=== PATIENT | female | born 1950 | race Caucasian/White ===

== ENCOUNTER 2017-08-24 08:21 | Outpatient (CLI) | payer OTHER | END 2017-08-24 08:33 | disposition home or self-care (01) | LOC: SONOGRAMA 08:21 → MAMO-SONO 09:15 | DX: E04.2 Nontoxic multinodular goiter (principal) ==

== ENCOUNTER → 2017-12-29 | Outpatient (CLI) | payer OTHER | END | disposition home or self-care (01) | LOC: LAB 08:13 | DX: D68.62 Lupus anticoagulant syndrome (principal); E72.11 Homocystinuria; E72.12 Methylenetetrahydrofolate reductase deficiency; D68.59 Other primary thrombophilia; D68.8 Other specified coagulation defects ==

== ENCOUNTER → 2018-04-26 10:02 | Outpatient (CLI) | payer OTHER | END | disposition home or self-care (01) | LOC: LAB 10:02 | DX: E11.65 Type 2 diabetes mellitus with hyperglycemia (principal) ==

== ENCOUNTER → 2019-02-07 | Outpatient (CLI) | payer OTHER | END | disposition home or self-care (01) | LOC: RAD 08:32 | DX: J45.998 Other asthma (principal) ==

== ENCOUNTER 2019-05-02 08:06 | Outpatient (CLI) | payer OTHER | END 2019-05-02 14:50 | disposition home or self-care (01) | LOC: MAMO-SONO 08:06 | DX: Z12.31 Encounter for screening mammogram for malignant neoplasm of breast (principal); Z12.39 Encounter for other screening for malignant neoplasm of breast; Z87.898 Personal history of other specified conditions ==

== ENCOUNTER 2019-05-09 11:39 | Outpatient (CLI) | payer OTHER | END 2019-05-09 12:30 | disposition home or self-care (01) | LOC: NUCLEAR 11:39 | DX: M81.0 Age-related osteoporosis without current pathological fracture (principal) ==

== ENCOUNTER 2020-11-29 07:59 | Outpatient (CLI) | payer OTHER | END 2020-11-29 08:12 | disposition home or self-care (01) | LOC: RAD 07:59 → MAMO-SONO 08:30 | PROVIDERS: ATTEND Specialist | DX: K75.81 Nonalcoholic steatohepatitis (NASH) (principal); J45.998 Other asthma; M10.2 Drug-induced gout ==

== ENCOUNTER 2021-06-24 08:38 | Outpatient (CLI) | payer OTHER | END 2021-06-24 08:49 | disposition home or self-care (01) | LOC: MAMO-SONO 08:38 | PROVIDERS: ATTEND Specialist | DX: Z12.31 Encounter for screening mammogram for malignant neoplasm of breast (principal); Z87.898 Personal history of other specified conditions; N63.0 Unspecified lump in unspecified breast ==

== ENCOUNTER 2021-09-24 07:08 | Outpatient (CLI) | payer OTHER | END 2021-09-24 07:13 | disposition home or self-care (01) | LOC: RAD 07:08 | PROVIDERS: ATTEND Specialist | DX: J45.998 Other asthma (principal) ==

== ENCOUNTER 2022-03-21 09:42 | Outpatient (CLI) | payer OTHER | END 2022-03-21 09:47 | disposition home or self-care (01) | LOC: RAD 09:42 | PROVIDERS: ATTEND Specialist | DX: M19.90 Unspecified osteoarthritis, unspecified site (principal) ==

== ENCOUNTER → 2022-03-21 | Outpatient (CLI) | payer OTHER | END | disposition home or self-care (01) | LOC: NUCLEAR 08:46 | PROVIDERS: ATTEND Specialist | DX: M81.0 Age-related osteoporosis without current pathological fracture (principal) ==

== ENCOUNTER 2022-06-12 08:37 | Outpatient (CLI) | payer OTHER | END 2022-06-12 08:44 | disposition home or self-care (01) | LOC: RAD 08:37 | PROVIDERS: ATTEND Specialist | DX: J45.998 Other asthma (principal) ==

== ENCOUNTER 2022-07-01 09:56 | Outpatient (CLI) | payer OTHER | END 2022-07-01 10:08 | disposition home or self-care (01) | LOC: MAMO-SONO 09:56 | PROVIDERS: ATTEND Specialist | DX: Z12.31 Encounter for screening mammogram for malignant neoplasm of breast (principal) ==

== ENCOUNTER 2023-05-25 09:33 | Outpatient (CLI) | payer OTHER | END 2023-05-25 09:37 | disposition home or self-care (01) | LOC: SONOGRAMA 09:33 | PROVIDERS: ATTEND Specialist | DX: N20.0 Calculus of kidney (principal) ==

== ENCOUNTER 2024-03-31 12:38 | Outpatient (CLI) | payer OTHER | END 2024-03-31 12:42 | disposition home or self-care (01) | LOC: NUCLEAR 12:38 | PROVIDERS: ATTEND Specialist | DX: M81.0 Age-related osteoporosis without current pathological fracture (principal); Z13.820 Encounter for screening for osteoporosis ==

== ENCOUNTER 2024-12-06 07:28 | Outpatient (CLI) | payer OTHER | END 2024-12-06 07:32 | disposition home or self-care (01) | LOC: RAD 07:28 | PROVIDERS: ATTEND Specialist | DX: J45.998 Other asthma (principal) ==

== ENCOUNTER 2025-03-17 09:45 | Outpatient (CLI) | payer OTHER | END 2025-03-17 09:58 | disposition home or self-care (01) | LOC: MAMO-SONO 09:45 | PROVIDERS: ATTEND Specialist | DX: N60.39 Fibrosclerosis of unspecified breast (principal); Z12.39 Encounter for other screening for malignant neoplasm of breast; Z12.31 Encounter for screening mammogram for malignant neoplasm of breast ==

== ENCOUNTER 2025-04-26 08:22 | Emergency (ER) | payer OTHER ==
[~2025-04-26] VITALS: Ht 167.6 cm; Wt 50.8 kg
[2025-04-26 08:58] VITALS: BP 195/94; O2SAT 98
[2025-04-26] MEDS ORDERED: LOPRESSOR25 MG PO (09:03)
[2025-04-26] MEDS ORDERED: AMILORIDE HCL5 MG PO (09:03)
[2025-04-26] MEDS ORDERED: HYDRODIURIL12.5 MG PO (09:04)
[2025-04-26] MEDS ORDERED: SODIUM CHLORI1000 MG PO (09:05)
[2025-04-26] MEDS ORDERED: METOPROLOL SUCCINATE 25 MG TAB.SR.24H PO ONE (10:45)
[2025-04-26] MEDS ORDERED: CEFTRIAXONE SODIUM 1,000 MG VIAL IM ONE (10:45)
[2025-04-26] MEDS ORDERED: GUAIFENESIN 200 MG/10 ML BLIST.PACK PO ONE ×2 (10:45→11:50)
[2025-04-26] MEDS ORDERED: ACETAMINOPHEN 325 MG TABLET PO ONE (11:00)
[2025-04-26] MEDS ORDERED: 0.9 % SODIUM CHLORIDE 1,000 ML IV SCH (11:00)
[2025-04-26] MEDS ORDERED: CEFTRIAXONE SODIUM 1,000 MG VIAL ONE (11:49)
[2025-04-26] MEDS ORDERED: ACETAMINOPHEN 500 MG GEL..CAP PO ONE (11:49)
[2025-04-26 12:54] LABS: BASO % 0.4 % (0.1-1.2); EOS # 0.06 (0.04-0.54); EOS % 0.5 % (0.7-7.0); LYMPH # 2.77 (1.18-3.74); LYMPH % 22.4 % (19.3-53.1); MEAN PLATELET VOLUME 10.20 fl (9.4-12.4); MONO # 0.77 (0.24-0.82); MONO % 6.2 % (4.7-12.5); NEUT # 8.64 (1.56-6.13); NEUT % 70.0 % (34.0-71.1); RED CELL DISTRIBUTION WIDTH 12.6 % (11.6-14.4)
[2025-04-26 13:20] LABS: COVID-19 AG NEGATIVE (NEGATIVE)
[2025-04-26 13:49] LABS: ALT/SGPT 40.0 U/L (12-78); AST/SGOT 22.0 U/L (15-37); BILIRUBIN TOTAL 0.35 mg/dL (0.3-1.2); BUN CREA RATIO 17.0 (7.0-25.0); CREATININE SERUM 0.71 mg/dL (0.55-1.02); GFR 80.69; GLOBULINA 3.7 G/DL (2.4-3.5); GLUCOSE FASTING 107.0 mg/dL (65-100); OSMOLALITY SERUM 281.0 MOSM/KG (275-295)
== END 2025-04-26 15:52 | disposition home or self-care (01) ==
LOC: ER 08:22
PROVIDERS: General Practice
DX: J11.1 Influenza due to unidentified influenza virus with other respiratory manifestations (principal); I10 Essential (primary) hypertension; K29.70 Gastritis, unspecified, without bleeding; Z91.013 Allergy to seafood; Z20.822 Contact with and (suspected) exposure to COVID-19